=== PATIENT | male | born 1965 | race Hispanic/Latino ===

== ENCOUNTER 2017-05-04 06:56 | Emergency (ER) | payer OTHER ==
[2017-05-04] MEDS ORDERED: TORADOL IV ONE (07:04)
[2017-05-04] MEDS ORDERED: MORPHINE IV ONE ×2 (07:14→08:05)
[2017-05-04] MEDS ORDERED: NACL 0.9% 1000 ML 1,000 ML IV ONE (07:14)
--- NOTE | 2017-05-04 07:16 | Emergency Department Report ---
HPI - General Chief Complaint: Abdominal Pain Time Seen by Provider: 05/04/17 07:13 - HPI HPI: This is a 51-year-old male presents to the emergency department from home with complaint of right-sided flank pain that radiates towards the back as well as down towards the right side of the groin through the abdomen is benign going on since this morning. The patient has a history of kidney stones and says that this feels very similar. He denies any hematuria. He has never required ureteral stents or lithotripsy. He does not have a urologist. His primary care physician is a Dr. Pereira. He did not take anything for symptoms prior to presentation. He denies any nausea, vomiting, fever, dysuria. No recent travel or sick contacts at home. ED Past Medical Hx - Past Medical History Previous Medical History?: No - Surgical History Past Surgical History?: No - Social History Smoking Status: Never Smoker Substance Use Type: None - Medications Home Medications: Home Medications Medication Instructions Recorded Confirmed Last Taken Type HYDROcodone/APAP 5-325 [[place] 1 each PO Q6HR PRN #16 tablet 05/04/17 Unknown Rx 5/325] Lisinopril [Zestril] 5 mg PO QDAY 05/04/17 05/04/17 05/03/17 History ED Review of Systems ROS: Stated complaint: FLANK PAIN Other details as noted in HPI Comment: All other systems reviewed and negative Constitutional: denies: chills, fever Eyes: denies: eye pain, eye discharge, vision change ENT: denies: ear pain, throat pain Respiratory: denies: cough, shortness of breath, wheezing Cardiovascular: denies: chest pain, palpitations Gastrointestinal: abdominal pain. denies: nausea, vomiting Genitourinary: denies: dysuria, hematuria Musculoskeletal: back pain. denies: arthralgia Skin: denies: rash, lesions Neurological: denies: headache, weakness, paresthesias Physical Exam - Physical Exam Vital Signs: Vital Signs 05/04/17 07:01 Temperature 98.4 F Pulse Rate 61 Respiratory 24 Rate Blood Pressure 140/93 O2 Sat by Pulse 100 Oximetry Physical Exam: GENERAL: The patient is well-developed well-nourished. HEENT: Normocephalic. Atraumatic. Extraocular motions are intact. Patient has moist mucous membranes. NECK: Supple. Trachea is midline. CHEST/LUNGS: Clear to auscultation. There is no respiratory distress noted. HEART/CARDIOVASCULAR: Regular. There is no tachycardia. There is no gallop rub or murmur. ABDOMEN: Abdomen is soft. Unable to reproduce abdominal/flank pain to palpation. No guarding rebound tenderness. Patient has normal bowel sounds. There is no abdominal distention. SKIN: There is no rash. There is no edema. There is no diaphoresis. NEURO: The patient is awake, alert, and oriented. The patient is cooperative. The patient has no focal neurologic deficits. The patient has normal speech. MUSCULOSKELETAL: There is no tenderness or deformity. There is no limitation range of motion. There is no evidence of acute injury. BACK: No midline thoracic or lumbar tenderness to palpation or deformity. Right -sided CVA tenderness to palpation. ED Course Vital Signs 05/04/17 07:01 Temperature 98.4 F Pulse Rate 61 Respiratory 24 Rate Blood Pressure 140/93 O2 Sat by Pulse 100 Oximetry ED Medical Decision Making - Lab Data Result diagrams: 05/04/17 07:56 05/04/17 07:56 - Radiology Data Radiology results: report reviewed CT of the abdomen and pelvis without contrast shows a nonobstructing calculi in the right kidney that appears to be about 1 mm. - Medical Decision Making This is a 51-year-old male presents the emergency department with right-sided flank pain with radiation towards the back and towards the groin that started this morning. He has a history of kidney stones and says that this feels similar. The blood lab work was unremarkable including no signs of renal sufficiency and no leukocytosis. First the patient says he was having trouble urinating. CT of the abdomen and pelvis without contrast showed a right intrarenal stone of about 1 mm but no ureteral stone or any hydronephrosis. Eventually the patient was able to urinate and it showed a significant amount of blood. This very well could be consistent with recently passed kidney stone. Urinalysis did not show any urinary tract infection. He was given a couple doses of pain medication as he continued to have a recurrence of his discomfort. He denied any pain in the actual scrotum, testicles or penis but felt it in the inguinal region. Vital signs stable throughout his ED course. He was written for some pain medication and a referral for urology. He will return to the ER with any worsening of symptoms or any acute distress. - Differential Diagnosis nephrolithiasis, hydronephrosis, appendicitis, diverticulitis Critical Care Time: No Critical care attestation.: If time is entered above; I have spent that time in minutes in the direct care of this critically ill patient, excluding procedure time. ED Disposition Clinical Impression: Renal colic on right side Hematuria Qualifiers: Hematuria type: unspecified type Qualified Code(s): R31.9 - Hematuria, unspecified Disposition: DC- TO HOME OR SELFCARE Is pt being admited?: No Condition: Stable Instructions: Renal Colic (ED), Acute Hematuria (ED) Additional Instructions: Please follow-up with your primary care doctor in the next few days. I given your referral for a local urologist, Dr. Zafar, occasionally like to follow-up regarding your kidney stones, renal colic and blood found in the urine. Return to the emergency department with any worsening of her symptoms or any acute distress. You've been prescribed a medication that is sedating. Therefore this medication cannot be mixed with alcohol, or taken prior to driving, working, or being responsible for children. Prescriptions: HYDROcodone/APAP 5-325 [[place] 5/325] 1 each PO Q6HR PRN #16 tablet PRN Reason: Pain Referrals: GUERA BENTLEY [Other] - 3-5 Days REBECA ZAFAR MD [Staff Physician] - 3-5 Days Forms: Work/School Release Form(ED) Time of Disposition: 11:23
[2017-05-04 08:05] LABS: Basophils % (Auto) 0.9 % (0.0-1.8); Eosinophils % (Auto) 2.8 % (0.0-4.3); Hematocrit 43.1 % (35.5-45.6); Hemoglobin 14.6 gm/dl (11.8-15.2); Mean Corpuscular HGB Conc 34 % (32-34); Mean Corpuscular Hemoglobin 31 pg (28-32); Mean Corpuscular Volume 90 fl (84-94); Platelet Count 180 K/mm3 (140-440); Red Blood Count 4.79 M/mm3 (3.65-5.03); Red Cell Distribution Width 13.4 % (13.2-15.2)
[2017-05-04 08:21] LABS: Alanine Aminotransferase 27 units/L (7-56); Albumin/Globulin Ratio 1.7 %; Alkaline Phosphatase 47 units/L (35-129); Anion Gap 15 mmol/L; BUN/Creatinine Ratio 16.36; Blood Urea Nitrogen 18 mg/dL (9-20); Calcium 8.6 mg/dL (8.4-10.2); Carbon Dioxide 27 mmol/L (22-30); Chloride 102.2 mmol/L (98-107); Glucose 118 mg/dL (75-100); Potassium 4.5 mmol/L (3.6-5.0); Sodium 140 mmol/L (137-145); Total Protein 6.4 g/dL (6.3-8.2)
--- NOTE | 2017-05-04 08:57 | Cat Scan Report ---
Abdomen pelvis without IV contrast: History: Right flank pain history of stones. Findings: Normal lung bases. No pleural pericardial effusion. Normal liver spleen pancreas and gallbladder. Normal adrenals. There is 4 mm nonobstructing calculus identified in the mid pole right kidney with a 1 mm calculus at the upper lower pole right kidney. No calculi left kidney. No calculi along the course of ureter. No evidence of hydronephrosis. Normal bladder. No free intraperitoneal fluid or air. No evidence of adenopathy. Gaseous colon with moderate volume stool in colon. Stool predominantly seen in the ascending colon. No evidence of appendicitis or diverticulitis. Impression: Nonobstructing calculi right kidney.
[2017-05-04] MEDS ORDERED: DILAUDID IV ONE ×2 (09:06→11:24)
[2017-05-04 10:49] VITALS: BP 135/83
[2017-05-04 11:03] LABS: Bilirubin,Urine NEG (Negative); Blood,Urine LG (Negative); Ketones,Urine NEG (Negative); Leukocyte Esterase,Urine NEG (Negative); Mucus,Urine 2+ /HPF; Nitrite,Urine NEG (Negative); Protein,Urine <15 mg/dL mg/dL (Negative); Urobilinogen,Urine < 2.0 mg/dL (<2.0)
[2017-05-04 11:05] LABS: RBC,Urine > 182.0 /HPF (0.0-6.0)
== END 2017-05-04 11:45 | disposition home or self-care (01) ==
LOC: ED 06:56
DX: N23 Unspecified renal colic (principal); R31.9 Hematuria, unspecified
CPT/HCPCS: 36415; 74176; 80053; 81001; 85025; 96361; 96374; 96375; 96376; 99284; J1170; J1885; J2270; J7030